=== PATIENT | male | born 1955 | race Caucasian/White ===

== ENCOUNTER 2017-06-10 15:48 | Inpatient (IN) | payer MEDICARE, OTHER ==
[~2017-06-10] VITALS: Ht 172.7 cm; Wt 101.2 kg
[2017-06-10] MEDS ORDERED: FER325 PO (16:25)
[2017-06-10] MEDS ORDERED: ASPI-664 PO (16:25)
[2017-06-10] MEDS ORDERED: AMLO5TAB4 PO (16:25)
[2017-06-10] MEDS ORDERED: METF1000 PO (16:26)
[2017-06-10] MEDS ORDERED: NEPH PO (16:26)
[2017-06-10] MEDS ORDERED: EZET10TA3 PO (16:26)
--- NOTE | 2017-06-10 16:26 | RADRPT ---
PROCEDURE: CT Brain without contrast. CLINICAL INDICATION: Transient ischemic attack, altered mental status TECHNIQUE: Routine CT scan of the brain was performed on a high resolution multi detector scanner without intravenous contrast. One or more of the following dose reduction techniques were used: Auto mated exposure control; Adjustment of the mA and/or kV according to patient size; Use of iterative r econstruction technique. CTDI = 43 mGy. DLP = 720 mGy-cm. COMPARISON: No prior relevant examinations are available for comparison. FINDINGS: Hemorrhage: No evidence of intracranial hemorrhage. Acute ischemic changes: No evidence of acute ischemic changes. Mass effect: None. Parenchymal volume: Within normal limits for age. Ventricular system: Concordant with parenchymal volume. Chronic changes: Mild chronic-appearing microvascular ischemic changes of the supratentorial white m atter. Atherosclerotic calcifications of the cavernous portions of both internal carotid arteries ar e present. Extracranial soft tissues: Unremarkable. Calvarium: No fractures. Paranasal sinuses: Visualized paranasal sinuses are clear. Mastoid air cells: Visualized mastoid air cells are clear. IMPRESSION: No acute intracranial abnormalities. Mild chronic-appearing microvascular ischemic changes of the supratentorial white matter. MRI of the brain may be useful for further evaluation. RPTAT: AADD .Almas Harris MD, Date Time Electronically viewed and signed by .Almas Harris MD, MD on 06/10/2017 16:26 .B/
[2017-06-10] MEDS ORDERED: CARV12.579 PO (16:27)
[2017-06-10] MEDS ORDERED: VALS320T11 PO (16:27)
[2017-06-10] MEDS ORDERED: CLOP75TA4 PO (16:27)
[2017-06-10] MEDS ORDERED: PITA4TAB PO (16:28)
[2017-06-10] MEDS ORDERED: CLON0.2T5 PO (16:29)
[2017-06-10] MEDS ORDERED: SITA100T8 PO (16:30)
[2017-06-10] MEDS ORDERED: GLIM4TAB PO (16:30)
[2017-06-10 16:40] LABS: BASOPHIL # 0.1 10^3/ul (0.0-0.1); BASOPHILS % 0.8 % (0.0-2.0); EOSINOPHILS # 0.1 10^3/ul (0.0-0.5); EOSINOPHILS % 1.8 % (0.0-7.0); HEMATOCRIT 36.1 % (42.0-52.0); HEMOGLOBIN 12.7 g/dl (14.0-18.0); LYMPHOCYTES # 1.9 10^3/ul (0.8-2.9); LYMPHOCYTES % 30.9 % (15.0-51.0); MEAN CORPUSCULAR HEMOGLOBIN 29.7 pg (29.0-33.0); MEAN CORPUSCULAR HGB CONC 35.2 g/dl (32.0-37.0); MEAN CORPUSCULAR VOLUME 84.3 fl (82.0-101.0); MEAN PLATELET VOLUME 10.2 fl (7.4-10.4); MONOCYTE # 0.6 10^3/ul (0.3-0.9); MONOCYTES % 9.2 % (0.0-11.0); NEUTROPHIL # 3.5 10^3/ul (1.6-7.5); NEUTROPHILS % 56.7 % (39.0-77.0); PLATELET COUNT 180 10^3/UL (140-415); RED BLOOD COUNT 4.28 10^6/ul (4.70-6.10); RED CELL DISTRIBUTION WIDTH 13.4 % (11.5-14.5); WHITE BLOOD COUNT 6.2 10^3/ul (4.8-10.8)
--- NOTE | 2017-06-10 16:47 | RADRPT ---
PROCEDURE: XR Chest. CLINICAL INDICATION: Possible stroke TECHNIQUE: Single frontal view of the chest was obtained COMPARISON: None FINDINGS: No pleural effusion or pneumothorax. No consolidation. Normal cardiac silhouette. Calcified and dilated aortic arch suggestive of chronic systemic hyperten matt. No acute osseous abnormality. Elevated left hemidiaphragm. IMPRESSION: No acute cardiopulmonary disease. RPTAT: EE Physician Delbert Date Time Electronically viewed and signed by Iza Cardozo Physician on 06/10/2017 16:46 /
[2017-06-10 16:57] LABS: INR 0.97; PROTIME 12.9 Sec (12.2-14.2)
[2017-06-10 16:58] LABS: PARTIAL THROMBOPLASTIN TIME 27.9 Sec (25.0-35.0)
[2017-06-10 16:59] LABS: ANION GAP 16 (8-16); BLOOD UREA NITROGEN 22 mg/dl (7-20); CALCIUM 9.9 mg/dl (8.4-10.2); CARBON DIOXIDE 25 mmol/L (21-31); CHLORIDE 107 mmol/L (97-110); CREATININE 1.24 mg/dl (0.61-1.24); GLUCOSE 161 mg/dl (70-220); POTASSIUM 4.3 mmol/L (3.5-5.1); SODIUM 144 mmol/L (135-144)
--- NOTE | 2017-06-10 17:11 | ERA ---
ER Documentation Chief Complaint Date/Time DATE: 06/10/17 TIME: 16:57 Chief Complaint PT BIB RA for Aphasia and sweating around 1500 that lasted for 10 minutes. HPI This is a 61-year-old male with a past medical history of hypertension, hyperlipidemia, diabetes, coronary artery disease with previous stenting on aspirin and Plavix who is presenting with a transient episode of confusion and aphasia. Approximately 30 minutes prior to arrival the patient developed an inability to speak. She heard words being spoken to him, but he was not able to respond in any way. He did not have any obvious focal deficits per report of the patient or his family who is with him. They called the paramedics who reported that upon arrival at the scene, the patient's symptoms had resolved. The patient's symptoms lasted approximately 15 minutes prior to resolution. He is no longer aphasic. He is not sick. He denies any fever or chills. He denies any nausea or vomiting. He denies any lightheadedness or dizziness at this time. He does not endorse presyncope during this event. He did not feel like he was going to pass out when he was unable to speak to his son. He denies any chest pain or trouble breathing. He denies any abdominal pain or changes to bowel movements urination. He does not have any focal deficits. He has no weakness or numbness or tingling to the face or extremities. ROS All systems reviewed and are negative except as per history of present illness. Medications Home Meds Reported Medications Sitagliptin* (Januvia*) 100 Mg Tablet, 100 MG PO DAILY, #30 TAB 06/10/17 Glimepiride* (Glimepiride*) 4 Mg Tablet, 4 MG PO WITH BREAKFAST, TAB 06/10/17 Clonidine Hcl* (Clonidine Hcl*) 0.2 Mg Tablet, 0.2 MG PO NEEDED Y for HTN, TAB TAKE T TAB PRN FOR BPS>160 06/10/17 Pitavastatin Calcium (Livalo) 4 Mg Tablet, 4 MG PO DAILY, TAB 06/10/17 Valsartan* (Diovan*) 320 Mg Tablet, 320 MG PO DAILY, TAB 06/10/17 Carvedilol* (Carvedilol*) 12.5 Mg Tablet, 12.5 MG PO BID, #60 TAB 06/10/17 Clopidogrel Bisulfate* (Clopidogrel Bisulfate*) 75 Mg Tablet, 75 MG PO DAILY, # 30 TAB 06/10/17 Metformin Hcl* (Metformin Hcl*) 1,000 Mg Tablet, 1000 MG PO WITH BREAKFAST DINNE , #60 TAB 06/10/17 Ezetimibe* (Zetia*) 10 Mg Tablet, 10 MG PO DAILY, TAB 06/10/17 Multivit/Ca Carb/B Cmplx/Fa* (Ann-Bernadette*) 1 Tab Tab, 1 TAB PO DAILY, TAB 06/10/17 Amlodipine Besylate* (Norvasc*) 5 Mg Tablet, 5 MG PO DAILY, TAB 06/10/17 Ferrous Sulfate* (Ferrous Sulfate*) 325 Mg Tabec, 325 MG PO DAILY, TAB 06/10/17 Aspirin* (Aspirin* EC) 81 Mg Tablet.dr, 81 MG PO DAILY, TAB 06/10/17 Allergies Allergies: Coded Allergies: No Known Allergy (Unverified , 06/10/17) PMhx/Soc History of Surgery: No Anesthesia Reaction: No Hx Respiratory Disorders: No Hx Cardiac Disorders: Yes (CAD-STENTS) Hx Psychiatric Problems: No Hx Miscellaneous Medical Probl: Yes (DM, HTN, elevated Cholesterol) Hx Alcohol Use: Yes Hx Substance Use: No Hx Tobacco Use: No Smoking Status: Former smoker FmHx Family History: coronary disease, diabetes Physical Exam Vitals Vital Signs Date Time Temp Pulse Resp B/P Pulse Ox O2 Delivery O2 Flow Rate FiO2 06/10/17 18:15 98.3 66 18 135/78 100 Room Air 06/10/17 16:00 98.1 66 18 177/79 100 Physical Exam Const: NAD, Well Developed, Well Nourished Head: Atraumatic Eyes: Normal Conjunctiva ENT: Normal External Ears, Nose and Mouth. Neck: Full range of motion. ~ No meningismus. Resp: Clear to auscultation bilaterally Cardio: Regular rate and rhythm, no murmurs Abd: Soft, non tender, non distended. Normal bowel sounds Skin: No petechiae or rashes Back: No midline or flank tenderness Ext: No cyanosis, or edema Neur: Awake and alert Psych: Normal Mood and Affect Result Diagram: 06/10/17 1600 06/10/17 1600 Results 24 hrs Laboratory Tests Test 06/10/17 16:00 06/10/17 17:00 White Blood Count 6.210^3/ul Red Blood Count 4.2810^6/ul Hemoglobin 12.7g/dl Hematocrit 36.1% Mean Corpuscular Volume 84.3fl Mean Corpuscular Hemoglobin 29.7pg Mean Corpuscular Hemoglobin Concent 35.2g/dl Red Cell Distribution Width 13.4% Platelet Count 01698^3/UL Mean Platelet Volume 10.2fl Neutrophils % 56.7% Lymphocytes % 30.9% Monocytes % 9.2% Eosinophils % 1.8% Basophils % 0.8% Nucleated Red Blood Cells % 0.0/100WBC Neutrophils # 3.510^3/ul Lymphocytes # 1.910^3/ul Monocytes # 0.610^3/ul Eosinophils # 0.110^3/ul Basophils # 0.110^3/ul Nucleated Red Blood Cells # 0.010^3/ul Prothrombin Time 12.9Sec Prothrombin Time Ratio 1.0 INR International Normalized Ratio 0.97 Activated Partial Thromboplast Time 27.9Sec Sodium Level 144mmol/L Potassium Level 4.3mmol/L Chloride Level 107mmol/L Carbon Dioxide Level 25mmol/L Anion Gap 16 Blood Urea Nitrogen 22mg/dl Creatinine 1.24mg/dl Glucose Level 161mg/dl Hemoglobin A1c 5.3% Calcium Level 9.9mg/dl Troponin I < 0.012ng/ml Urine Color YELLOW Urine Clarity CLEAR Urine pH 6.0 Urine Specific Proctor 1.018 Urine Ketones NEGATIVEmg/dL Urine Nitrite NEGATIVEmg/dL Urine Bilirubin NEGATIVEmg/dL Urine Urobilinogen NEGATIVEmg/dL Urine Leukocyte Esterase NEGATIVELeu/ul Urine Microscopic RBC 2/HPF Urine Microscopic WBC 0/HPF Urine Hemoglobin NEGATIVEmg/dL Urine Glucose NEGATIVEmg/dL Urine Total Protein 3+mg/dl Urine Opiates Screen Negative Urine Barbiturates Negative Urine Amphetamines Screen Negative Urine Benzodiazepines Screen Negative Urine Cocaine Screen Negative Urine Cannabinoids Negative Procedures/MDM MDM The patient's presenting with concerns of a TIA. He reportedly had an aphasic episode lasting approximately 15-20 minutes. It did resolve on its own. The patient's NIH stroke scale is 0 presently. He does not have any focal deficits. A stroke alert was not called, but a stroke evaluation will be completed in the emergency department. The patient does not have any signs of this being from a cardiac pathology. He denies any chest pain or any radiating pain. His vital signs are stable. Labs The patient's blood work was obtained and reviewed. Patient has no leukocytosis or left shift. He is afebrile, I do not suspect an infectious etiology. The patient does have a mild anemia that does not need to be emergently treated. The patient's CMP demonstrates a mild elevation of his BUN, which could demonstrate a component of dehydration, but the patient does not appear clinically dehydrated at this time. The patient's troponin is negative. Urinalysis showed proteinuria, but no signs of hematuria or infection. The UDS was also negative. EKG EKG read by me Rate/Rhythm: Regular rate and rhythm at a rate of 67 Intervals: Normal [place]: Left [place] Q waves in inferior leads, possible old ischemia Impression: No evidence of acute ischemia or arrhythmia Imaging CTH IMPRESSION: No acute intracranial abnormalities. Mild chronic-appearing microvascular ischemic changes of the supratentorial white matter. MRI of the brain may be useful for further evaluation. Electronically viewed and signed by .Almas Harris MD, MD on 06/10/2017 16:26 CXR IMPRESSION: No acute cardiopulmonary disease. Electronically viewed and signed by Physician Delbert on 06/10/2017 16 :46 Treatment/Dispo He will be given a 500 mL bolus of normal saline. The patient will also be given aspirin in the emergency department given the concerns of a stroke. He did take a baby aspirin this morning, so 243 mg will be given in the emergency department. The patient reportedly had a second event in the emergency department that lasted approximately a minute prior to resolution. I am concerned of a TIA. It is reassuring that the CT scan is negative at this time. However, he does require further workup, likely with an MRI. The patient will be admitted to the hospital for further evaluation and management. The patient was admitted to the panel team as per his insurance at 1850PM on . Departure Diagnosis: Primary Impression: Aphasia Condition: PRAKASH Orellana MD Jun 10, 2017 17:08
[2017-06-10 17:15] LABS: ADD UMIC YES; UR ASCORBIC ACID NEGATIVE (NEGATIVE); UR BILIRUBIN (Dip) NEGATIVE (NEGATIVE); UR BLOOD (Dip) NEGATIVE (NEGATIVE); UR CLARITY CLEAR (CLEAR); UR COLOR YELLOW (YELLOW); UR GLUCOSE (Dip) NEGATIVE (NEGATIVE); UR KETONES (Dip) NEGATIVE (NEGATIVE); UR LEUKOCYTE ESTERASE (Dip) NEGATIVE Leu/ul (NEGATIVE); UR NITRITE (Dip) NEGATIVE (NEGATIVE); UR RBC 2 /HPF (0-5); UR SPECIFIC GRAVITY (Dip) 1.018 (1.003-1.030); UR TOTAL PROTEIN (Dip) 3+ mg/dl (NEGATIVE); UR UROBILINOGEN (Dip) NEGATIVE (NEGATIVE)
[2017-06-10 17:22] LABS: TROPONIN-I < 0.012 ng/ml (0.00-0.12)
[2017-06-10 17:31] LABS: BARBITURATES Negative (NEGATIVE); BENZODIAZEPINES Negative (NEGATIVE); CANNABINOIDS Negative (NEGATIVE); COCAINE Negative (NEGATIVE); OPIATES Negative (NEGATIVE)
[2017-06-10] MEDS ORDERED: LORAZEPAM 2 MG INJ IV PRN (19:00)
[2017-06-10] MEDS ORDERED: HYDROCODONE/APAP (5/325) TAB PO PRN (19:00)
[2017-06-10] MEDS ORDERED: ACETAMINOPHEN 325 MG TAB PO PRN ×2 (19:00)
[2017-06-10] MEDS ORDERED: DOCUSATE SODIUM 100 MG CAP PO PRN (19:00)
[2017-06-10] MEDS ORDERED: hydrALAzine 20 MG INJ IV PRN (19:00)
[2017-06-10] MEDS ORDERED: ONDANSETRON 4 MG INJ IV PRN ×2 (19:00)
[2017-06-10] MEDS ORDERED: NITROGLYCERIN (SL) 0.4 MG TAB SL PRN (19:00)
[2017-06-10] MEDS ORDERED: NACL 0.9% 3 ML SYG IV SCH (19:00)
[2017-06-10] MEDS ORDERED: morphine 2 MG INJ IV PRN (19:00)
[2017-06-10] MEDS ORDERED: NA PHOSPHATE/BIPHOS 133 ML ENEMA PR PRN (19:00)
[2017-06-10] MEDS ORDERED: MAGNESIUM HYDROXIDE 30ML CUP PO PRN (19:00)
[2017-06-10] MEDS ORDERED: ALBUTEROL/IPRATROPIUM (NEB) 3 ML AMP HHN PRN (19:00)
[2017-06-10] MEDS ORDERED: GLUCOSE GEL 15 GRAM TUBE BUCCAL PRN (19:30)
[2017-06-10] MEDS ORDERED: GLUCAGON 1 MG INJ IM PRN (19:30)
[2017-06-10] MEDS ORDERED: DEXTROSE 50% 50 ML SYRINGE IV PRN ×2 (19:30)
[2017-06-10] MEDS ORDERED: GLUCOSE GEL 15 GRAM TUBE PO PRN ×2 (19:30)
--- NOTE | 2017-06-10 19:36 | RADRPT ---
PROCEDURE: US Carotids. CLINICAL INDICATION: bruit , dizzy TECHNIQUE: Multiple sonographic of the carotid bifurcation region and vertebral arteries were obta ined utilizing calvert scale, duplex and color-flow imaging. The images were reviewed on a PACS worksta tion. COMPARISON: No prior studies are available for comparison. FINDINGS: Evaluation of the right carotid bifurcation region reveals moderate calcific atherosclerotic disease . . There is a 43% stenosis in the right proximal ICA. Evaluation of the left carotid bifurcation region reveals mild to moderate calcific atherosclerotic disease. . There is a 28% stenosis in the left carotid bulb region. There is antegrade flow within the vertebral arteries bilaterally. RIGHT CAROTID MEASUREMENTS: Common Carotid Kqbief37 (cm/sec) Internal Carotid Artery - cuyozcgs43.2 (cm/sec) Internal Carotid Artery - mid72.8 (cm/sec) Internal Carotid Artery - omtlei18.8 (cm/sec) Internal Carotid/Common Carotid1.47 LEFT CAROTID MEASUREMENTS: Common Carotid Glshlx18.2 (cm/sec) Internal Carotid Artery - .4 (cm/sec) Internal Carotid Artery - mid72.8 (cm/sec) Internal Carotid Artery - ktkvae64.8 (cm/sec) Internal Carotid/Common Carotid1.2 RPTAT: AA IMPRESSION: 43% stenosis in the right proximal ICA. No evidence for hemodynamically significant stenosis in the bilateral internal carotid arteries - va lidated velocity measurements with angiographic measurements, velocity criteria are extrapolated fro m diameter data as defined by the Society of Radiologists in Ultrasound Consensus Conference Radiolo gy 2003; 229;340-346. This study does indirectly reference the measurement of the distal ICA diamet er as the denominator for stenosis measurement. Normal antegrade flow in the vertebral arteries bilaterally. Further evaluation with a CT angiogram is recommended. .Efren Pinto MD, MD Date Time Electronically viewed and signed by .Efren Pinto MD, MD on 06/10/2017 19:36 .S/
[2017-06-10] MEDS ORDERED: SOD CHLORIDE 0.9% 100 ML ONE (20:22)
[2017-06-10] MEDS ORDERED: IOHEXOL 100 ML ONE (20:22)
[2017-06-10 20:24] LABS: PROTIME 13.2 Sec (12.2-14.2)
[2017-06-10 20:25] LABS: PARTIAL THROMBOPLASTIN TIME 27.5 Sec (25.0-35.0)
[2017-06-10 21:01] VITALS: TEMP 98.2
[2017-06-10 21:10] VITALS: BP 155/81; PULSE 63; RESP 20; Ht 172.7 cm; Wt 101.2 kg
[2017-06-10] MEDS: INSULIN ASPART [NOVOLOG] 3 ML PEN SC SCH (21:30)
[2017-06-10] MEDS: SOD CHLORIDE 0.45% 1,000 ML IV SCH (21:30)
--- NOTE | 2017-06-10 21:53 | RADRPT ---
PROCEDURE: CT head, without contrast. CLINICAL INDICATION: Neurological symptoms with possible stroke. TECHNIQUE: Noncontrast CT examination of the head, with axial, sagittal and coronal reformatted im ages. Automated dose exposure control was employed. CTDI: 44.19 and DLP: 720.23 COMPARISON: Today, about 4-1/2 hours ago. FINDINGS: Mild changes of chronic atrophy and small vessel disease white matter are without significant private branch exchange operator the interval. No acute hemorrhage. Subarachnoid spaces are substantially preserved and symmetric. Ventricles ar e unremarkable. No mass effect. Hoskins-white matter distinction is preserved without evident decreased attenuation t o suggest acute or recent infarct. Sinuses and osseous structures are unremarkable. IMPRESSION: No acute process in the head. RPTAT: UU Physician Varsha Date Time Electronically viewed and signed by Physician Varsha on 06/10/2017 21:52 /
[2017-06-10 22:00] VITALS: PULSE 61
[2017-06-10] MEDS: FAMOTIDINE 20 MG TAB PO SCH (22:09)
[2017-06-10] MEDS: HEPARIN 5,000 UNIT/0.5 ML VIAL SC SCH (22:10)
--- NOTE | 2017-06-10 22:22 | RADRPT ---
PROCEDURE: CT angiogram neck and brain. CLINICAL INDICATION: Neurologic deficit. Clinical symptoms of stroke TECHNIQUE: The study was performed utilizing 0.6 axial sections from the thoracic inlet to the mark kulwant with the use of 100 cc Omnipaque 350 intravenous contrast. Multiplanar and rotational MIP refor mats were obtained. 3-D reconstructions were not obtained. One or more of the following dose reduct ion techniques were used: Automated exposure control, adjustment of the mA and/or kV according to pa tient size, use of iterative reconstruction technique. CTDIvol = 65.63 mGy and DLP = 894.35 mGycm. COMPARISON: Noncontrast head CT 06/10/2017 FINDINGS: CTA neck: Right carotid system: No common carotid artery occlusion or atheromatous change of significance is present. Moderate calcified and noncalcified atheromatous disease of the bifurcation is present. At heromatous changes extending to the proximal internal carotid artery and contribute to a mild degree of stenosis. The degree of internal carotid artery stenosis is estimated at less than 50%. The rem ainder of the cervical internal carotid arteries unremarkable for stenosis, some tortuosity and karen ation into the right nasopharynx is noted Left carotid system:No common carotid artery occlusion or atheromatous change of significance is pre sent. Severe calcified and noncalcified atheromatous disease in the bifurcation extends into the pro ximal internal carotid artery. Short segment narrowing of the proximal left internal carotid artery for a length of approximately 8 mm is present. The degree of internal carotid artery stenosis is es timated at less than 50%. Internal carotid artery stenosis estimation is based upon NASCET criteria. Right vertebral artery: Codominant in size and uniform in caliber throughout. No evidence of disse ction, occlusion or focal stenosis. Left vertebral artery: Codominant compared to the contralateral side and uniform in caliber through out. No occlusion, dissection or significant stenosis is present. CTA brain: Anterior circulation: The intracranial internal carotid arteries demonstrates severe cavernous segm ent atherosclerotic calcification bilaterally but with no evidence for occlusion or stenosis. The a nterior and middle cerebral arteries are also normal with no evidence for narrowing. There is no va sculitis pattern or extraluminal projection of contrast to suggest an aneurysm. Posterior circulation: Calcification in the right vertebral artery greater than left at the level o f the foramen magnum is present with a short segment stenosis of the distal right intracranial verte bral artery. Diffuse diminutive caliber of the basilar artery is present without evidence of occlusi on or focal significant stenosis. The posterior cerebral arteries are unremarkable. Venous structures: Sagittal sinuses appear patent without evidence of thrombus. Transverse and sig moid sinuses are unremarkable as is the torcula. Internal cerebral veins, vein of Richard and straigh t sinus show no abnormalities. No cortical vein abnormality is appreciated. Non vascular findings: Chronic maxillary sinus mucosal thickening is present. There is some degener ative spondylosis of the thoracic spine. The visualized upper thorax is remarkable for a bovine arch and aortic atherosclerotic calcification RPTAT:HJJR IMPRESSION: 1. Atherosclerotic calcification of the left greater than right carotid bifurcations without hemody namically significant stenosis. Direct measurements of vessel diameters was made in reference to me asurements of the distal internal carotid artery diameter. 2. No evidence of vertebral artery abnormality. 3. Severe atherosclerotic calcification of the cavernous internal carotid arteries bilaterally with out evidence of anterior circulation intracranial arterial occlusion or significant stenosis. Diffu sely diminutive basilar artery with a short segment focal stenosis of the distal right intracranial vertebral artery. 4. Incidental bovine aortic arch. Physician Jenn Date Time Electronically viewed and signed by Physician Jenn on 06/10/2017 22:21 JR/
--- NOTE | 2017-06-10 23:05 | HP ---
DATE OF ADMISSION: 06/10/2017 CHIEF COMPLAINT: Aphasia and sweating. HISTORY OF PRESENT ILLNESS: A 61-year-old male, past medical history of essential hypertension, type 2 diabetes, coronary artery disease with prior stent, high cholesterol, who was brought in by ambulance earlier today. Apparently, the patient had been having aphasia that began about 30-40 minutes before the patient arrived to the emergency room. He was not able to speak. No diarrhea or constipation. No upper or lower GI bleeding. No nausea or vomiting. No dizziness or lightheadedness symptoms, and denied any apparent focal deficits. By the time the patient arrived to the ER, which was a few minutes later, he was able to speak no longer aphasic. No numbness or tingling symptoms as well. When he arrived, his systolic blood pressure was 177/79, and head CT was performed in the ER but showed no acute abnormalities. PAST MEDICAL HISTORY: As above. ALLERGIES: NO KNOWN DRUG ALLERGIES. HOME MEDICATIONS: Plavix 75 mg daily, ferrous sulfate 325 mg daily, Norvasc 5 mg daily, Coreg 12.5 mg b.i.d., clonidine 0.2 mg p.o. every day p.r.n., Zetia 10 mg daily, Livalo 4 mg daily, Diovan 320 mg daily, aspirin 81 mg daily, glimepiride 4 mg every morning, metformin 1000 mg b.i.d., Januvia 100 mg daily, Ann Bernadette 1 tab daily. SOCIAL HISTORY: Negative for IV drug abuse, occasional alcohol use, former smoking history. FAMILY HISTORY: Positive for diabetes and coronary artery disease. PAST SURGICAL HISTORY: He has had cardiac stents placed in the past. PHYSICAL EXAMINATION: VITAL SIGNS: T-max 98.3, pulse 66, respirations 18, blood pressure 177-135 systolic over 79-70 diastolic, satting 100 percent on room air. GENERAL: Patient is lying in bed, answers questions appropriately. No acute distress. HEENT: Pupils equal, round, react to light. Extraocular movements intact. NECK: Supple. No thyromegaly. LUNGS: Clear to auscultation bilaterally. CARDIOVASCULAR: S1, S2. No rubs or gallops. ABDOMEN: Soft, nontender, nondistended. Normal bowel sounds. No rebound or guarding. MUSCULOSKELETAL: No lower extremity edema bilaterally. NEUROLOGIC: No focal deficits. LABORATORY DATA: CBC is normal. The basic metabolic panel is normal. Troponin is negative x1. UA negative, nitrite negative, leukocyte esterase. Urine drug screen is negative. Coags are normal. We mentioned the head CT results. Chest x-ray shows no acute cardiopulmonary disease. ASSESSMENT AND PLAN: A 61-year-old male coming in with aphasia symptoms about 30-40 minutes before admission, signs of transient ischemic attack versus stroke. 1. Aphasia and weakness. Admit the patient to telemetry floor. Will do neuro checks every 4 hours. Check TSH, A1c, and lipid panel. Put him on high-dose cholesterol medications, high-dose aspirin as well. Get a 2D echocardiogram, speech therapy evaluation, allow for permissive hypertension for now. Get physical therapy and occupational therapy consult as well. Looks like because this patient's symptoms had resolved fairly quickly after arriving, ER did not feel there was a need to give tPA at this time. I did not elicit any focal deficits on my exam. Also get MRI of the brain and carotid Doppler studies. 2. History of coronary artery disease with stent placement in the past. I am going to continue aspirin and Plavix for now, also cholesterol medications. 3. High cholesterol. Continue cholesterol medicines and check lipid panel. 4. Hypertension. Again, we are going to hold patient's home blood pressure medicines and allow for permissive hypertension for at least the first 24 hours to look and definitively rule out stroke. 5. Type 2 diabetes. Check A1c. Put patient on sliding scale insulin. 6. Deep venous thrombosis prophylaxis. Heparin subcutaneous. Dictated By: Chay Guardado MD /[email or web address] /Document#: [id number]
[2017-06-11] VITALS (12 sets, daily range): BP systolic 114–156; BP diastolic 61–86; PULSE 50–70; RESP 19–20
[2017-06-11] MEDS: INSULIN ASPART [NOVOLOG] 3 ML PEN SC SCH ×6 (01:00→20:56)
[2017-06-11] MEDS: ACCU-CHEK XX SCH (01:28)
[2017-06-11 07:55] LABS: BASOPHILS % 0.7 % (0.0-2.0); EOSINOPHILS # 0.1 10^3/ul (0.0-0.5); EOSINOPHILS % 1.5 % (0.0-7.0); HEMATOCRIT 33.6 % (42.0-52.0); HEMOGLOBIN 11.9 g/dl (14.0-18.0); LYMPHOCYTES # 1.9 10^3/ul (0.8-2.9); LYMPHOCYTES % 33.2 % (15.0-51.0); MEAN CORPUSCULAR HEMOGLOBIN 29.6 pg (29.0-33.0); MEAN CORPUSCULAR HGB CONC 35.4 g/dl (32.0-37.0); MEAN CORPUSCULAR VOLUME 83.6 fl (82.0-101.0); MEAN PLATELET VOLUME 9.8 fl (7.4-10.4); MONOCYTE # 0.5 10^3/ul (0.3-0.9); MONOCYTES % 9.3 % (0.0-11.0); NEUTROPHIL # 3.2 10^3/ul (1.6-7.5); PLATELET COUNT 152 10^3/UL (140-415); RED BLOOD COUNT 4.02 10^6/ul (4.70-6.10); RED CELL DISTRIBUTION WIDTH 13.4 % (11.5-14.5); WHITE BLOOD COUNT 5.8 10^3/ul (4.8-10.8)
[2017-06-11] MEDS: SOD CHLORIDE 0.45% 1,000 ML IV SCH ×2 (08:17→11:51)
[2017-06-11 08:18] LABS: CHOL/HDL RATIO 5.2 RATIO
[2017-06-11 08:22] LABS: CALCIUM 9.3 mg/dl (8.4-10.2); CREATININE 0.98 mg/dl (0.61-1.24); MAGNESIUM 1.8 mg/dl (1.7-2.5); PHOSPHORUS 3.5 mg/dl (2.5-4.9); POTASSIUM 4.1 mmol/L (3.5-5.1)
[2017-06-11 08:49] LABS: THYROID STIMULATING HORMONE 0.729 MIU/L (0.465-4.680)
[2017-06-11] MEDS: FAMOTIDINE 20 MG TAB PO SCH ×2 (09:09→20:56)
[2017-06-11] MEDS: CLOPIDOGREL 75 MG TAB PO SCH (09:09)
[2017-06-11] MEDS: MULTIVIT/CA CARB/B CMPLX/FA TAB PO SCH (09:09)
[2017-06-11] MEDS: EZETIMIBE 10 MG TAB PO SCH (09:09)
[2017-06-11] MEDS: ASPIRIN (EC) 325 MG TAB PO SCH (09:09)
[2017-06-11] MEDS: FERROUS SULFATE (EC) 325 MG TAB PO SCH (09:10)
[2017-06-11] MEDS: ATORVASTATIN 20 MG TAB PO SCH (09:10)
[2017-06-11] MEDS: HEPARIN 5,000 UNIT/0.5 ML VIAL SC SCH ×2 (09:12→20:56)
--- NOTE | 2017-06-11 12:31 | PN ---
Date/Time of Note Date/Time of Note DATE: 06/11/17 TIME: 12:27 Assessment/Plan VTE Prophylaxis VTE Prophylaxis Intervention: heparin Lines/Catheters IV C[facility]ter Type (from [facility] Peripheral IV Urinary Cath still in place: No Assessment/Plan Chief Complaint/Hosp Course ASSESSMENT AND PLAN: 61-year-old male coming in with aphasia symptoms about 30-40 minutes before admission, signs of transient ischemic attack versus stroke. 1. Aphasia and weakness-rule out TIA versus CVA. Head CT was negative for signs of ischemia. No current focal deficits. CTA head and neck also performed , as well as echocardiogram and carotid Dopplers. MRI of the brain will be done later today. -Continue to neuro checks every 4 hours, cholesterol medications, high -dose aspirin as well. -Follow-up 2D echocardiogram, speech therapy evaluation, continue to allow for permissive hypertension for today. -Follow-up physical therapy and occupational therapy consult as well. 2. History of coronary artery disease with stent placement in the past. -continue aspirin and Plavix for now, also cholesterol medications. 3. High cholesterol. Continue cholesterol medicines 4. Hypertension. Again, we are going to hold patient's home blood pressure medicines and allow for permissive hypertension for another day at least until MRI results are back 5. Type 2 diabetes. Check A1c. Put patient on sliding scale insulin. 6. Deep venous thrombosis prophylaxis. Heparin subcutaneous. Problems: Exam/Review of Systems Vital Signs Vitals Vital Signs Date Time Temp Pulse Resp B/P Pulse Ox O2 Delivery O2 Flow Rate FiO2 06/11/17 12:15 56 06/11/17 12:09 97.7 20 156/86 98 06/10/17 21:10 Room Air Intake and Output 06/10/17 06/10/17 06/11/17 15:00 23:00 07:00 Intake Total 650 ml Balance 650 ml Exam GENERAL: Patient is lying in bed, answers questions appropriately. No acute distress. HEENT: Pupils equal, round, react to light. Extraocular movements intact. NECK: Supple. No thyromegaly. LUNGS: Clear to auscultation bilaterally. CARDIOVASCULAR: S1, S2. No rubs or gallops. ABDOMEN: Soft, nontender, nondistended. Normal bowel sounds. No rebound or guarding. MUSCULOSKELETAL: No lower extremity edema bilaterally. NEUROLOGIC: No focal deficits. Results Result Diagram: 06/11/17 0733 06/11/17 0733 Results 24 hrs Laboratory Tests Test 06/10/17 16:00 06/10/17 17:00 06/10/17 20:00 06/10/17 21:16 White Blood Count 6.2 Red Blood Count 4.28 L Hemoglobin 12.7 L Hematocrit 36.1 L Mean Corpuscular Volume 84.3 Mean Corpuscular Hemoglobin 29.7 Mean Corpuscular Hemoglobin Concent 35.2 Red Cell Distribution Width 13.4 Platelet Count 180 Mean Platelet Volume 10.2 Neutrophils % 56.7 Lymphocytes % 30.9 Monocytes % 9.2 Eosinophils % 1.8 Basophils % 0.8 Nucleated Red Blood Cells % 0.0 Neutrophils # 3.5 Lymphocytes # 1.9 Monocytes # 0.6 Eosinophils # 0.1 Basophils # 0.1 Nucleated Red Blood Cells # 0.0 Prothrombin Time 12.9 13.2 Prothrombin Time Ratio 1.0 1.0 INR International Normalized Ratio 0.97 1.00 Activated Partial Thromboplast Time 27.9 27.5 Sodium Level 144 Potassium Level 4.3 Chloride Level 107 Carbon Dioxide Level 25 Anion Gap 16 Blood Urea Nitrogen 22 H Creatinine 1.24 Glucose Level 161 Hemoglobin A1c 5.3 Calcium Level 9.9 Troponin I < 0.012 Free Thyroxine 1.06 Urine Color YELLOW Urine Clarity CLEAR Urine pH 6.0 Urine Specific [place] 1.018 Urine Ketones NEGATIVE Urine Nitrite NEGATIVE Urine Bilirubin NEGATIVE Urine Urobilinogen NEGATIVE Urine Leukocyte Esterase NEGATIVE Urine Microscopic RBC 2 Urine Microscopic WBC 0 Urine Hemoglobin NEGATIVE Urine Glucose NEGATIVE Urine Total Protein 3+ H Urine Opiates Screen Negative Urine Barbiturates Negative Urine Amphetamines Screen Negative Urine Benzodiazepines Screen Negative Urine Cocaine Screen Negative Urine Cannabinoids Negative Bedside Glucose 113 Test 06/11/17 01:27 06/11/17 06:03 06/11/17 07:33 06/11/17 08:26 Bedside Glucose 110 148 141 White Blood Count 5.8 Red Blood Count 4.02 L Hemoglobin 11.9 L Hematocrit 33.6 L Mean Corpuscular Volume 83.6 Mean Corpuscular Hemoglobin 29.6 Mean Corpuscular Hemoglobin Concent 35.4 Red Cell Distribution Width 13.4 Platelet Count 152 Mean Platelet Volume 9.8 Neutrophils % 55.0 Lymphocytes % 33.2 Monocytes % 9.3 Eosinophils % 1.5 Basophils % 0.7 Nucleated Red Blood Cells % 0.0 Neutrophils # 3.2 Lymphocytes # 1.9 Monocytes # 0.5 Eosinophils # 0.1 Basophils # 0.0 Nucleated Red Blood Cells # 0.0 Sodium Level 139 Potassium Level 4.1 Chloride Level 107 Carbon Dioxide Level 27 Anion Gap 9 # Blood Urea Nitrogen 19 Creatinine 0.98 Glucose Level 150 Hemoglobin A1c 5.4 Calcium Level 9.3 Phosphorus Level 3.5 Magnesium Level 1.8 Triglycerides Level 260 H Cholesterol Level 148 LDL Cholesterol, Calculated 68 HDL Cholesterol 28 L Cholesterol/HDL Ratio 5.2 Thyroid Stimulating Hormone (TSH) 0.729 Test 06/11/17 12:10 Bedside Glucose 138 Medications Medications Current Medications Ondansetron HCl (Zofran Inj) 4 mg Q6H PRN IV NAUSEA AND/OR VOMITING; Start at 19:00 Acetaminophen (Tylenol Tab) 650 mg Q6H PRN PO PAIN LEVEL 1-3 OR FEVER; Start at 19:00 Acetaminophen/ Hydrocodone Bitart ([place] (5/325)) 1 tab Q6H PRN PO MODERATE PAIN LEVEL 4-6; Start 06/10/17 at 19:00 Morphine Sulfate (morphine) 2 mg Q4H PRN IV SEVERE PAIN LEVEL 7-10; Start 06/10 at 19:00 Docusate Sodium (Colace) 100 mg Q12H PRN PO CONSTIPATION; Start 06/10/17 at 19: 00 Magnesium Hydroxide (Milk Of Mag) 30 ml DAILY PRN PO CONSTIPATION; Start at 19:00 Sodium Biphosphate/ Sodium Phosphate (Fleet Enema) 133 ml DAILY PRN ND CONSTIPATION; Start 06/10/17 at 19:00 Famotidine (Pepcid) 20 mg Q12 PO Last administered on 06/11/17 09:09; Admin Dose 20 MG; Start 06/10/17 at 21:00 Heparin Sodium (Porcine) 5000 unit 5,000 unit Q12 SC Last administered on 09:12; Admin Dose 5,000 UNIT; Start 06/10/17 at 21:00 Sodium Chloride (1/2 NS) 1,000 ml @ 75 mls/hr [id number] IV Last administered on 06/11/17 11:51; Admin Dose 75 MLS/HR; Start 06/10/17 at 18:57 Lorazepam (Ativan) 0.5 mg Q6H PRN IV ANXIETY; Start 06/10/17 at 19:00 Hydralazine HCl (Apresoline) 10 mg Q4H PRN IV ELEVATED BLOOD PRESSURE; Start at 19:00 Nitroglycerin (Nitroglycerin (Sl Tab) 0.4 Mg) 1 tab Q5M PRN SL ANGINA; Start at 19:00 Aspirin (Ecotrin) 325 mg DAILY PO Last administered on 06/11/17 09:09; Admin Dose 325 MG; Start 06/11/17 at 09:00 Clopidogrel Bisulfate (plaVIX) 75 mg DAILY PO Last administered on 06/11/17 09 :09; Admin Dose 75 MG; Start 06/11/17 at 09:00 EZETIMIBE (Zetia) 10 mg DAILY PO Last administered on 06/11/17 09:09; Admin Dose 10 MG; Start 06/11/17 at 09:00 Ferrous Sulfate (Ferrous Sulfate (Ec)) 325 mg DAILY PO Last administered on 09:10; Admin Dose 325 MG; Start 06/11/17 at 09:00 Multivit/Ca Carb/ B Cmplx/FA/Prenat (Ann-Bernadette) 1 tab DAILY PO Last administered on 06/11/17 09:09; Admin Dose 1 TAB; Start 06/11/17 at 09:00 Atorvastatin Calcium (Lipitor) 20 mg DAILY PO Last administered on 06/11/17 09 :10; Admin Dose 20 MG; Start 06/11/17 at 09:00 Diagnostic Test (Pha) (Accu-Chek) 1 ea 02 XX ; Start 06/11/17 at 02:00 Insulin Aspart (Novolog Insulin Pen) NOVOLOG *MILD* ALGORI... Q4 SC Last administered on 06/11/17 09:17; Admin Dose 1 UNIT; Start 06/10/17 at 21:00 Miscellaneous Information 1 ea NOTE XX ; Start 06/10/17 at 19:30 Glucose (Glutose) 15 gm Q15M PRN PO DECREASED GLUCOSE; Start 06/10/17 at 19:30 Glucose (Glutose) 22.5 gm Q15M PRN PO DECREASED GLUCOSE; Start 06/10/17 at 19: 30 Dextrose (D50w Syringe) 25 ml Q15M PRN IV DECREASED GLUCOSE; Start 06/10/17 at 19:30 Dextrose (D50w Syringe) 50 ml Q15M PRN IV DECREASED GLUCOSE; Start 06/10/17 at 19:30 Glucagon (Glucagen) 1 mg Q15M PRN IM DECREASED GLUCOSE; Start 06/10/17 at 19:30 Glucose (Glutose) 15 gm Q15M PRN BUCCAL DECREASED GLUCOSE; Start 06/10/17 at 19 :30 Procedures Procedures CTA head and neck: IMPRESSION: 1. Atherosclerotic calcification of the left greater than right carotid bifurcations without hemodynamically significant stenosis. Direct measurements of vessel diameters was made in reference to measurements of the distal internal carotid artery diameter. 2. No evidence of vertebral artery abnormality. 3. Severe atherosclerotic calcification of the cavernous internal carotid arteries bilaterally without evidence of anterior circulation intracranial arterial occlusion or significant stenosis. Diffusely diminutive basilar artery with a short segment focal stenosis of the distal right intracranial vertebral artery. 4. Incidental bovine aortic arch. MER RUIZ Jun 11, 2017 12:31
--- NOTE | 2017-06-11 15:06 | RADRPT ---
PROCEDURE: MR Brain without contrast. CLINICAL INDICATION: Dizziness and transient aphasia. TECHNIQUE: An MRI of the brain was performed on a GE short bore high-definition 3 david scanner ut ilizing the following sequences: Sagittal and axial T1 weighted, axial T2 weighted, axial FLAIR, co deyvi GRE, and axial diffusion weighted with ADC mapping. COMPARISON: CT brain 06/10/2017. FINDINGS: No high signal abnormalities are seen on the diffusion-weighted images to suggest the presence of ac [place] ischemia or recent infarct. There is no evidence of intracranial hemorrhage, mass effect, or mi dline shift. No extra-axial fluid collections are seen. The ventricles and sulci are normal in size and configuration. Increased T2-weighted/FLAIR signal intensity is noted within the periventricula r and deep white matter, somewhat nonspecific though perhaps reflective of mild microvascular ischem ic disease. Small chronic lacunar infarcts are noted within the right putamen and left thalamus. Th ere is a small chronic lacunar infarct in the right paracentral rogelio and mild microvascular ischemic disease in the rogelio. The cerebellum is grossly normal in signal intensity. No hypointense signal a bnormalities are seen on the GRE images to suggest the presence of blood degradation products. Norm al flow voids are visible in the proximal intracranial arteries and dural sinuses, indicating patency. The visualized paranasal sinuses are grossly clear. IMPRESSION: 1. No evidence of acute intracranial pathology. 2. Mild microvascular ischemic disease in the periventricular and deep white matter as well as rogelio . 3. Small chronic lacunar infarcts are seen in the right basal ganglia, left thalamus, and right par acentral rogelio. RPTAT: HJAH .Leeanne Enrique MD, MD Date Time Electronically viewed and signed by .Leeanne Enrique MD, on 06/11/2017 15:06 .H/
--- NOTE | 2017-06-11 15:39 | RADRPT ---
Echocardiogram Report Patient Name: ESTEFANIA PRICE Gender: Male Date: 1955 Study Date: 11-Jun-2017 [employer]: [employer] Location: E Ref. Physician: MER RUIZ Quality: Adequate Procedures: Transthoracic echocardiogram with complete 2D, M-Mode, and Doppler examination. Indications: R/O Cerebrovascular Accident. 2D/M Mode Doppler Measurement Value Normal Ranges Measurement Value Normal Ranges AoR Diam MM 3.8 cm AV Peak Melvin 1.2 m/sec ACS MM 2.1 cm AV Peak PG 5.6 mmHg LVIDd 2D 4.8 3.5 - 5.6 cm LVOT Peak Melvin 0.7 m/sec LVIDs 2D 3.0 2.1 - 4.1 cm LVOT Peak PG 2.0 mmHg LVPWd 2D 1.2 0.6 - 1.1 cm MV E Peak Melvin 0.7 m/sec IVSd 2D 1.4 0.6 - 1.1 cm MV A Peak Melvin 0.8 m/sec EDV 2D 107.0 cm3 MV E/A 0.8 ESV 2D 27.6 cm3 MV Decel Time 202 msec LA Dimen 2D 4.2 2.3 - 4.0 cm MV Decel Galax 3 MV E/A 0.8 PV Peak Melvin 1.0 m/sec PV Peak PG 4.0 mmHg Findings Left Ventricle: Normal left ventricular systolic function. Normal left ventricular cavity size. Mild concentric left ventricular hypertrophy. Ejection fraction is visually estimated at 6065 %. Tissue Doppler/Mitral Doppler indices are consistent with impaired relaxation (Stage I diastolic dysfunction). Right Ventricle: Normal right ventricular size. Normal right ventricular systolic function. Left Atrium: There is mild enlargement of left atrium. Right Atrium: The right atrium is normal in size. Atrial Septum: Normal atrial septum. Mitral Valve: Normal appearance and function of the mitral valve with trace physiologic regurgitation. Aortic Valve: No significant aortic stenosis or insufficiency. Normal trileaflet aortic valve structure. Tricuspid Valve: Normal appearance of the tricuspid valve. No evidence of tricuspid regurgitation. Pulmonic Valve: Normal pulmonic valve appearance. There is trace pulmonic regurgitation. Pericardium: Normal pericardium with no significant pericardial effusion. No pleural effusion noted. Aorta: There is mild aortic root dilation. IVC: Normal size and normal respiratory collapse consistent with normal right atrial pressure. Pulmonary Artery: Normal pulmonary artery size. Conclusions 1.The left ventricle is normal in size and systolic function. 2.Estimated left ventricular ejection fraction of 60-65%. 3.Mild concentric left ventricular hypertrophy. Grade 1 diastolic dysfunction. Electronically Signed By: Joce Diaz 11-Jun-2017 15:38:48 -0700 Patient Name: ESTEFANIA PRICE Study Date: 11-Jun-2017 [id number]
[2017-06-12] VITALS (9 sets, daily range): BP systolic 128–163; BP diastolic 76–88; PULSE 54–68; RESP 20
[2017-06-12] MEDS: SOD CHLORIDE 0.45% 1,000 ML IV SCH
[2017-06-12] MEDS: INSULIN ASPART [NOVOLOG] 3 ML PEN SC SCH ×4 (01:00→12:05)
[2017-06-12] MEDS: ACCU-CHEK XX SCH (01:06)
[2017-06-12] MEDS: EZETIMIBE 10 MG TAB PO SCH (07:50)
[2017-06-12] MEDS: ASPIRIN (EC) 325 MG TAB PO SCH (07:50)
[2017-06-12] MEDS: ATORVASTATIN 20 MG TAB PO SCH (07:50)
[2017-06-12] MEDS: MULTIVIT/CA CARB/B CMPLX/FA TAB PO SCH (07:50)
[2017-06-12] MEDS: FAMOTIDINE 20 MG TAB PO SCH (07:50)
[2017-06-12] MEDS: FERROUS SULFATE (EC) 325 MG TAB PO SCH (07:50)
[2017-06-12] MEDS: CLOPIDOGREL 75 MG TAB PO SCH (07:51)
[2017-06-12] MEDS: HEPARIN 5,000 UNIT/0.5 ML VIAL SC SCH (07:52)
[2017-06-12 10:32] LABS: BASOPHILS % 0.7 % (0.0-2.0); EOSINOPHILS # 0.1 10^3/ul (0.0-0.5); EOSINOPHILS % 2.3 % (0.0-7.0); HEMATOCRIT 36.6 % (42.0-52.0); HEMOGLOBIN 13.1 g/dl (14.0-18.0); MEAN CORPUSCULAR HEMOGLOBIN 29.4 pg (29.0-33.0); MEAN CORPUSCULAR HGB CONC 35.8 g/dl (32.0-37.0); MEAN CORPUSCULAR VOLUME 82.1 fl (82.0-101.0); MEAN PLATELET VOLUME 10.1 fl (7.4-10.4); MONOCYTE # 0.5 10^3/ul (0.3-0.9); MONOCYTES % 8.6 % (0.0-11.0); PLATELET COUNT 172 10^3/UL (140-415); RED BLOOD COUNT 4.46 10^6/ul (4.70-6.10); RED CELL DISTRIBUTION WIDTH 13.2 % (11.5-14.5); WHITE BLOOD COUNT 5.6 10^3/ul (4.8-10.8)
[2017-06-12 10:53] LABS: CALCIUM 9.8 mg/dl (8.4-10.2); CREATININE 0.91 mg/dl (0.61-1.24)
[2017-06-12] MEDS ORDERED: VALSARTAN 160 MG TAB PO SCH (11:30)
[2017-06-12] MEDS ORDERED: AMLODIPINE 5 MG TAB PO SCH (11:30)
[2017-06-12] MEDS ORDERED: LINAGLIPTIN 5 MG TABLET PO SCH (12:00)
[2017-06-12] MEDS ORDERED: BLOO-62 MC (12:20)
--- NOTE | 2017-06-12 12:23 | PDOCDIS ---
Discharge Instructions CONDITION Patient Condition: Stable HOME CARE INSTRUCTIONS: Special Diet: cardiac ACTIVITY: Activity Restrictions: Slowly Increase Activity FOLLOW UP/APPOINTMENTS Follow-up Plan Follow up with your regular doctor tomorrow as scheduled I have sent a prescription for a home blood pressure cuff to your home pharmacy. Please bring this to your appointment to your regular doctor tomorrow and discuss how often you should be checking your blood pressure at home TRELL MANZANARES MD Jun 12, 2017 12:23
--- NOTE | 2017-06-12 12:38 | DS ---
Date/Time of Note Date/Time of Note DATE: 06/12/17 TIME: 12:24 Discharge Summary Admission/Discharge Info Admit Date/Time Jun 10, 2017 at 18:51 Discharge Date/Time Discharge Diagnosis transient ischemic attack 2/2 small vessel disease Patient Condition: Stable Consults PT, OT, Speech Procedures LABS a1c 5.4, TC 148, LDL 68, TGs 260s, HDL 28 IMAGING NCCT head: no mass/bleed/stroke MRI brain wo contrast: no acute CVA, +microvascular disease, +chronic lacunar infarcts CTA neck/brain: athlerosclerosis bl carotids without hemodynamically significant stenosis, sever atherosclerosis bl ICAs Carotid US: 43% stenosis R proximal ICA CXR: wnl TTE: EF 60-65%, grade 1 DD, mild LVH Hx of Present Illness A 61-year-old male, past medical history of essential hypertension, type 2 diabetes, coronary artery disease with prior stent, high cholesterol, who was brought in by ambulance earlier today. Apparently, the patient had been having aphasia that began about 30-40 minutes before the patient arrived to the emergency room. He was not able to speak. No diarrhea or constipation. No upper or lower GI bleeding. No nausea or vomiting. No dizziness or lightheadedness symptoms, and denied any apparent focal deficits. By the time the patient arrived to the ER, which was a few minutes later, he was able to speak no longer aphasic. No numbness or tingling symptoms as well. When he arrived, his systolic blood pressure was 177/79, and head CT was performed in the ER but showed no acute abnormalities. Hospital Course 61 yo M with multiple cerebrovascular risk factors including HTN, DM, HL presented following an episode of aphasia. Imaging without evidence of CVA but did show significant cerebrovascular atherosclerosis. Clinical scenario consistent with TIA 2/2 small vessel disease. Regarding risk factor modification , pt already on DAPT for his CAD/PCI hx. A1c well under target, LDL not markedly elevated. Pt does not smoke. Pt with hypertension during his stay as home BP meds were held, however per AHA guidelines, reasonable to resume home BP meds if >24 hours from event. Thus home BP meds were resumed prior to discharge. TTE with nl EF, +LVH likely 2/2 longstanding HTN. Tele monitoring x 36 hours with no evidence of AFib, just sinus rhythm. Pt discharged with home BP cuff and instructions with f/u with PCP tomorrow as scheduled for further BP management/discussion of risk factor modification. Pt seen by PT/OT/ST prior to discharge, no needs/deficits noted. No changes from admit meds. Copy of this dc summary given to pt to give to PCP tomorrow Reference Nathan EC, Miley BENAVIDEZ, Urbano CABEZAS Jr, et al. Guidelines for the early management of patients with acute ischemic stroke: a guideline for healthcare professionals from the [place] [employer]/[place] Stroke Association. Stroke. 2013;44 :870-947 Home Meds Reported Medications Sitagliptin* (Januvia*) 100 Mg Tablet, 100 MG PO DAILY, #30 TAB 06/10/17 Glimepiride* (Glimepiride*) 4 Mg Tablet, 4 MG PO WITH BREAKFAST, TAB 06/10/17 Clonidine Hcl* (Clonidine Hcl*) 0.2 Mg Tablet, 0.2 MG PO NEEDED Y for HTN, TAB TAKE T TAB PRN FOR BPS>160 06/10/17 Pitavastatin Calcium (Livalo) 4 Mg Tablet, 4 MG PO DAILY, TAB 06/10/17 Valsartan* (Diovan*) 320 Mg Tablet, 320 MG PO DAILY, TAB 06/10/17 Carvedilol* (Carvedilol*) 12.5 Mg Tablet, 12.5 MG PO BID, #60 TAB 06/10/17 Clopidogrel Bisulfate* (Clopidogrel Bisulfate*) 75 Mg Tablet, 75 MG PO DAILY, # 30 TAB 06/10/17 Metformin Hcl* (Metformin Hcl*) 1,000 Mg Tablet, 1000 MG PO WITH BREAKFAST DINNE , #60 TAB 06/10/17 Ezetimibe* (Zetia*) 10 Mg Tablet, 10 MG PO DAILY, TAB 06/10/17 Multivit/Ca Carb/B Cmplx/Fa* (Ann-Bernadette*) 1 Tab Tab, 1 TAB PO DAILY, TAB 06/10/17 Amlodipine Besylate* (Norvasc*) 5 Mg Tablet, 5 MG PO DAILY, TAB 06/10/17 Ferrous Sulfate* (Ferrous Sulfate*) 325 Mg Tabec, 325 MG PO DAILY, TAB 06/10/17 Aspirin* (Aspirin* EC) 81 Mg Tablet.dr, 81 MG PO DAILY, TAB 06/10/17 Follow-up Plan Follow up with your regular doctor tomorrow as scheduled I have sent a prescription for a home blood pressure cuff to your home pharmacy. Please bring this to your appointment to your regular doctor tomorrow and discuss how often you should be checking your blood pressure at home Primary Care Provider Jason Hermosillo MD Time spent on discharge: > 30 minutes Pending Labs Laboratory Tests Test 06/11/17 17:14 06/11/17 20:43 06/12/17 01:05 06/12/17 05:32 Bedside Glucose 143mg/dL (70-220) 118mg/dL (70-220) 135mg/dL (70-220) 139mg/dL (70-220) Test 06/12/17 07:31 06/12/17 09:41 06/12/17 11:44 Bedside Glucose 148mg/dL (70-220) 163mg/dL (70-220) White Blood Count 5.610^3/ul (4.8-10.8) Red Blood Count 4.4610^6/ul (4.70-6.10) Hemoglobin 13.1g/dl (14.0-18.0) Hematocrit 36.6% (42.0-52.0) Mean Corpuscular Volume 82.1fl (82.0-101.0) Mean Corpuscular Hemoglobin 29.4pg (29.0-33.0) Mean Corpuscular Hemoglobin Concent 35.8g/dl (32.0-37.0) Red Cell Distribution Width 13.2% (11.5-14.5) Platelet Count 59181^3/UL (140-415) Mean Platelet Volume 10.1fl (7.4-10.4) Neutrophils % 53.0% (39.0-77.0) Lymphocytes % 35.0% (15.0-51.0) Monocytes % 8.6% (0.0-11.0) Eosinophils % 2.3% (0.0-7.0) Basophils % 0.7% (0.0-2.0) Nucleated Red Blood Cells % 0.0/100WBC (0.0-0.0) Neutrophils # 3.010^3/ul (1.6-7.5) Lymphocytes # 2.010^3/ul (0.8-2.9) Monocytes # 0.510^3/ul (0.3-0.9) Eosinophils # 0.110^3/ul (0.0-0.5) Basophils # 0.010^3/ul (0.0-0.1) Nucleated Red Blood Cells # 0.010^3/ul (0.0-0.0) Sodium Level 140mmol/L (135-144) Potassium Level 4.0mmol/L (3.5-5.1) Chloride Level 105mmol/L (97-110) Carbon Dioxide Level 24mmol/L (21-31) Anion Gap 15 (8-16) Blood Urea Nitrogen 16mg/dl (7-20) Creatinine 0.91mg/dl (0.61-1.24) Glucose Level 199mg/dl (70-220) Calcium Level 9.8mg/dl (8.4-10.2) TRELL MANZANARES MD Jun 12, 2017 12:36
[2017-06-13] MEDS ORDERED: ASPIRIN 81 MG TAB PO SCH (09:00)
== END 2017-06-12 15:42 | disposition home or self-care (01) | DRG 69 ==
LOC: E/R 15:48 → MS4 18:51
PROVIDERS: ADMIT Hospitalist; ATTEND Hospitalist
DX: G45.9 Transient cerebral ischemic attack, unspecified (principal); E11.8 Type 2 diabetes mellitus with unspecified complications; I67.2 Cerebral atherosclerosis; R47.01 Aphasia; I25.10 Atherosclerotic heart disease of native coronary artery without angina pectoris; Z95.5 Presence of coronary angioplasty implant and graft; E78.00 Pure hypercholesterolemia, unspecified; Z79.02 Long term (current) use of antithrombotics/antiplatelets; Z87.891 Personal history of nicotine dependence; Z86.73 Personal history of transient ischemic attack (TIA), and cerebral infarction without residual deficits
CPT/HCPCS: 36415; 70450; 70496; 70498; 70551; 71010; 80048; 80061; 80307; 81001; 82962; 83036; 83735; 84100; 84439; 84443; 84484; 85025; 85610; 85730; 92523; 92610; 93005; 93306; 93880; 97162; 97166; J1644; J1815; Q9967